=== PATIENT | female | born 1960 | race Caucasian/White ===

== ENCOUNTER 2020-07-11 05:14 | Emergency (ER) | payer MEDICAID ==
[~2020-07-11] VITALS: Ht 157.5 cm; Wt 72.6 kg
[~2020-07-11 05:14] MED LIST: PANT40EC PO; TRAM50TA1 PO
[2020-07-11 05:28] VITALS: BP 170/87
--- NOTE | 2020-07-11 05:45 | NUR ---
ER MD AT BEDSIDE EVALUATING PATIENT.
[2020-07-11] MEDS ORDERED: cephALEXin 500 MG CAP PO STA (05:46)
--- NOTE | 2020-07-11 05:50 | NUR ---
60 Y/O FEMALE BIB SELF WITH C/O PAINFUL URINATION 06/01 X 1 DAY. REPORTS TAKING OTC MEDS FOR PAIN WHICH WERE TEMPORARILY EFFECTIVE. PATIENT ALSO REPORTS URINARY FREQUENCY AND STATES, "I CAME BECAUSE I STARTED TO SEE BLOOD IN MY URINE". DENIES HAVING ANY PELVIC PAIN OR FLANK PAIN. PATIENT STATES PAIN IS PROVOKED ONLY BY URINATION. PATIENT ALSO HAS C/O RASH ON BILATERAL ANKLE. REPORTS TAKING ANTIBIOTIC OINTMENT WITH INEFFECTIVE RESULTS. NOTED WITH DRY, SCALY AREA 1X1 CM IN DIAMETER. NO DRAINAGE OR C/O PAIN. VERBALIZES "ITCHINESS" AT SITE. NOTIFIED. ALLERGIES: NKDA MEDICAL HX: DENIES
--- NOTE | 2020-07-11 05:50 | NUR ---
UA COLLECTED AND PLACED IN DIRTY UTILITY.
[2020-07-11 06:20] VITALS: BP 170/87
--- NOTE | 2020-07-11 06:20 | NUR ---
Patient discharged with v/s stable. Written and verbal after care instructions given and explained. Patient alert, oriented and verbalized understanding of instructions. Ambulatory with steady gait. All questions addressed prior to discharge. ID band removed. Patient advised to follow up with PMD. Rx of Keflex & clotrimazole given. Patient educated on indication of medication including possible reaction and side effects. Opportunity to ask questions provided and answered.
--- NOTE | 2020-07-13 15:58 | NUR ---
Urine culture received from lab. Culture and sensitivity received and shown to Dr. Ash. No new orders received. Treatment appropriate. No further care needed. Copy of C&S placed in discrepancy folder.
== END 2020-07-11 06:20 | disposition home or self-care (01) ==
LOC: MED 05:14
DX: N39.0 Urinary tract infection, site not specified (principal); J45.909 Unspecified asthma, uncomplicated; Z79.899 Other long term (current) drug therapy
CPT/HCPCS: 81002; 87086; 99283

== ENCOUNTER 2021-06-18 13:01 | Emergency (ER) | payer MEDICAID ==
[~2021-06-18] VITALS: Ht 149.9 cm; Wt 85.7 kg
[2021-06-18 13:05] VITALS: BP 194/97
--- NOTE | 2021-06-18 13:09 | NUR ---
PATIENT AMBULATED TO BED 4, STEADY GAIT.
--- NOTE | 2021-06-18 13:12 | NUR ---
PATIENT AMBULATED TO BATHROOM, STEADY GAIT.
--- NOTE | 2021-06-18 13:14 | NUR ---
URINE SAMPLE COLLECTED, WALKED TO LAB
--- NOTE | 2021-06-18 13:20 | NUR ---
61 YO FEMALE WITH C/O 8/10 RUQ ABDOMINAL PAIN X1WEEK. DESCRIBES DULL AND CONSTANT. PATIENT STATES PAIN GOT WORSE YESTERDAY AND WAS UNABLE TO EAT YESTERDAY. DENIES FEVER, CHILLS, N/V/D. ACTIVE BS X4, SOFT, TENDER TO PALPATION ON RUQ. PLACED IN GOWN AND ON MONITOR FOR FURTHER EVALUATION. PMH: FATTY LIVER NKDA
[2021-06-18] MEDS ORDERED: KETOROLAC 30 MG/ML VIAL IVP ONE (13:40)
[2021-06-18] MEDS ORDERED: NACL 0.9% 1,000 ML IV SCH (13:40)
--- NOTE | 2021-06-18 13:40 | NUR ---
BLOOD SAMPLES COLLECTED AND GIVEN TO THICKENER OPERATOR.
--- NOTE | 2021-06-18 13:49 | NUR ---
BOX FINISHER AT BEDSIDE FOR ULTRASOUND.
[2021-06-18 14:00] LABS: BILIRUBIN,URINE NEGATIVE (NEGATIVE); BLOOD, URINE NEGATIVE (NEGATIVE); COLOR,URINE YELLOW (YELLOW); LEUKOCYTE ESTERASE ,URINE TRACE (NEGATIVE); NITRITE, URINE NEGATIVE (NEGATIVE); UGLUCOSE NEGATIVE (NEGATIVE)
[2021-06-18 14:01] LABS: BASOPHILS % (AUTO) 0.5 % (0.0-2.0); EOSINOPHILS # (AUTO) 0.2 K/uL (0-0.4); EOSINOPHILS % (AUTO) 1.7 % (0.0-4.0); HEMATOCRIT 42.7 % (36-48); HEMOGLOBIN 14.4 g/dL (12.0-16.0); LYMPHOCYTES # (AUTO) 2.9 K/uL (2.5-16.5); LYMPHOCYTES % (AUTO) 31.6 % (20.5-51.1); MEAN CORPUSCULAR HEMOGLOBIN 32 pg (27-31); MEAN CORPUSCULAR HGB CONC 34 g/dL (33-37); MEAN CORPUSCULAR VOLUME 95.5 fL (80-94); MONOCYTES # (AUTO) 0.6 K/uL (0.8-1.0); MONOCYTES % (AUTO) 6.5 % (1.7-9.3); NEUTROPHILS # (AUTO) 5.4 K/uL (1.8-7.7); NEUTROPHILS % (AUTO) 59.7 % (42.2-75.2); PLATELET COUNT (AUTO) 299 K/uL (140-450); RED BLOOD CELL COUNT(AUTO) 4.48 MIL/uL (4.20-5.40); RED CELL DISTRIBUTION WIDTH 13.1 % (11.6-13.7)
[2021-06-18 14:10] LABS: CARBON DIOXIDE 25.8 mmol/L (21-32); CREATININE 0.7 mg/dL (0.6-1.3); POTASSIUM 3.8 mmol/L (3.5-5.1)
[2021-06-18 14:12] LABS: ALBUMIN 3.8 g/dL (3.4-5.0); TOTAL BILIRUBIN 0.5 mg/dL (0.0-1.0)
[2021-06-18 14:23] LABS: APPEARANCE,URINE CLEAR (CLEAR); RBC,URINE NONE SEEN /HPF (0-5); WBC,URINE NONE SEEN /HPF (0-5)
--- NOTE | 2021-06-18 15:45 | NUR ---
PATIENT FLUID BOLUS FINISHED, PATIENT STATES SHE IS NO LONGER IN PAIN AND FEELS BETTER.
[2021-06-18 16:19] VITALS: BP 149/80
--- NOTE | 2021-06-18 16:20 | NUR ---
Patient discharged with v/s stable. Written and verbal after care instructions given and explained. Patient verbalized understanding. Ambulatory with steady gait. All questions addressed prior to discharge. Advised to follow up with PMD.
== END 2021-06-18 16:19 | disposition home or self-care (01) ==
LOC: MED 13:01
DX: R10.9 Unspecified abdominal pain (principal); J45.909 Unspecified asthma, uncomplicated
CPT/HCPCS: 36415; 76705; 80053; 81001; 81025; 83690; 85025; 96361; 96374; 99284; J1885; J7030; Q0092